=== PATIENT | female | born 1945 | race Caucasian/White ===

== ENCOUNTER → 2021-03-13 | Outpatient (CLI) | payer MEDICARE, MEDICAID ==
--- NOTE | 2021-03-13 14:13 | Diagnostic Imaging Report ---
INDICATION: Right hip pain COMPARISON: None. FINDINGS: 2 views right hip demonstrate moderate degenerative joint disease. There is no fracture or dislocation. No osseous lesion. IMPRESSION: Moderate degenerative changes. Dictated by: Dictated on workstation # [id number]
== END ==
LOC: RAD FS 13:14
PROVIDERS: ATTEND Nurse Practitioner
DX: M16.11 Unilateral primary osteoarthritis, right hip (principal)
CPT/HCPCS: 73502